=== PATIENT | female | born 1995 | race Caucasian/White ===

== ENCOUNTER 2018-11-03 20:35 | Emergency (ER) | payer OTHER ==
--- NOTE | 2018-11-03 20:49 | ERPHSYRPT ---
- History of Present Illness Time Seen by Provider: 11/03/18 20:49 Source: patient Exam Limitations: no limitations Physician History: 23 y/o white female who is 8-9 weeks . she has not had an u/s with this . pt has had n/v for over 48 hours. cannot hold fluids down. she began have mild vaginal spotting this afternoon. pt has had 2 miscarriages. most recently 5 months ago. pt also has a mild headache. Timing/Duration: day(s) (2 ) Quality: cramping (mild vaginal) Onset Location: suprapubic, vaginal Pain Radiation: none Severity of Pain-Max: mild Severity of Pain-Current: mild Sexual intercourse history: non-contributory Modifying Factors: Improves With: vomiting Associated Symptoms: abdominal pain, nausea, vomiting, Allergies/Adverse Reactions: No Known Drug Allergies Allergy (Unverified 11/03/18 21:44) - Review of Systems Constitutional: No Symptoms Eyes: No Symptoms Ears, Nose, & Throat: No Symptoms Respiratory: No Symptoms Cardiac: No Symptoms Abdominal/Gastrointestinal: Abdominal Pain, Nausea, Vomiting Genitourinary Symptoms: No Symptoms, Vaginal Bleeding (mild spotting today), No Dysuria, No Frequency, No Hematuria Musculoskeletal: No Symptoms Skin: No Symptoms Neurological: No Symptoms Psychological: No Symptoms Endocrine: No Symptoms Hematologic/Lymphatic: No Symptoms Immunological/Allergic: No Symptoms All Other Systems: Reviewed and Negative - Past Medical History Pertinent Past Medical History: Yes Neurological History: No Pertinent History ENT History: No Pertinent History Cardiac History: No Pertinent History Respiratory History: No Pertinent History Endocrine Medical History: No Pertinent History Musculoskeletal History: No Pertinent History GI Medical History: No Pertinent History History: No Pertinent History Psycho-Social History: No Pertinent History Female Reproductive Disorders: No Pertinent History - Past Surgical History Neuro Surgical History: No Pertinent History Cardiac: No Pertinent History Respiratory: No Pertinent History Gastrointestinal: No Pertinent History Genitourinary: No Pertinent History Musculoskeletal: No Pertinent History Female Surgical History: No Pertinent History - Nursing Vital Signs Nursing Vital Signs: Initial Vital Signs Temperature 98.2 F 11/03/18 21:28 Pulse Rate 93 H 11/03/18 21:28 Respiratory Rate 18 11/03/18 21:28 Blood Pressure 124/76 11/03/18 21:28 O2 Sat by Pulse Oximetry 100 11/03/18 21:28 Pain Scale Pain Intensity 0 - Physical Exam General Appearance: no apparent distress, alert, anxiety Eye Exam: PERRL/EOMI Ears, Nose, Throat Exam: normal ENT inspection, moist mucous membranes Neck Exam: normal inspection, non-tender, supple, full range of motion Respiratory Exam: normal breath sounds, lungs clear, airway intact, No chest tenderness, No respiratory distress Cardiovascular Exam: regular rate/rhythm, normal heart sounds, normal peripheral pulses Gastrointestinal/Abdomen Exam: soft, tenderness (mild suprapubic ), No guarding , No rebound Pelvic Exam: not done Rectal Exam: not done Back Exam: normal inspection, normal range of motion, No CVA tenderness, No vertebral tenderness Extremity Exam: normal inspection, normal range of motion, pelvis stable Neurologic Exam: alert, oriented x 3, cooperative, meal attendant II-XII nml as tested Skin Exam: normal color, warm, dry Lymphatic Exam: No adenopathy SpO2 Interpretation: normal O2 Delivery: Room Air Ordered Tests: Active Orders 24 hr Category Date Time Status AMYLASE Stat Lab 11/03/18 21:40 Completed CBC W DIFF Stat Lab 11/03/18 21:40 Completed CMP Stat Lab 11/03/18 21:40 Completed CULTURE,URINE Stat Lab 11/03/18 21:44 Received HCG, Quantitative (Inhouse) Stat Lab 11/03/18 21:40 Completed LIPASE Stat Lab 11/03/18 21:40 Completed UA W/RFX UR CULTURE Stat Lab 11/03/18 21:44 Completed Medication Summary Discontinued Medications Generic Name Dose Route Start Last Admin Trade Name Darianq PRN Reason Stop Dose Admin Sodium Chloride 1,000 mls @ 999 mls/hr 11/03/18 21:11 11/03/18 22:56 Sodium Chloride 0.9% 1000 Ml IV 11/03/18 22:11 Infused .Q1H1M STA Infusion Sodium Chloride Confirm 11/03/18 21:22 Sodium Chloride 0.9% 1000 Ml Administered 11/03/18 21:23 Dose 1,000 mls @ ud .ROUTE .STK-MED ONE Ondansetron HCl 4 mg 11/03/18 21:11 11/03/18 21:44 Zofran 4 Mg/2 Ml Vial IV 11/03/18 21:12 Not Given STAT ONE Ondansetron HCl Confirm 11/03/18 21:23 Zofran 4 Mg/2 Ml Vial Administered 11/03/18 21:24 Dose 4 mg .ROUTE .STK-MED ONE Promethazine HCl 12.5 mg 11/03/18 21:30 11/03/18 21:45 Phenergan 25 Mg Inj IM 11/03/18 21:31 12.5 mg STAT ONE Administration Promethazine HCl Confirm 11/03/18 21:32 Phenergan 25 Mg Inj Administered 11/03/18 21:33 Dose 25 mg .ROUTE .STK-MED ONE Lab/Rad Data: Laboratory Result Diagrams 11/03/18 21:40 11/03/18 21:40 Laboratory Results 11/03/18 11/03/18 11/03/18 Range/Units 21:44 21:40 21:40 WBC (4.0-10.5) K/mm3 RBC (4.1-5.4) M/mm3 Hgb (12.0-16.0) gm/dl Hct (35-47) % MCV (78-100) fl MCH (26-32) pg MCHC (32-36) g/dl RDW (11.5-14.0) % Plt Count (150-450) K/mm3 MPV (6-9.5) fl Gran % (36.0-66.0) % Eos # (Auto) (0-0.5) Absolute Lymphs (auto) (1.0-4.6) Absolute Monos (auto) (0.0-1.3) Lymphocytes % (24.0-44.0) % Monocytes % (0.0-12.0) % Eosinophils % (0.00-5.0) % Basophils % (0.0-0.4) % Absolute Granulocytes (1.4-6.9) Basophils # (0-0.4) Sodium (137-145) mmol/L Potassium (3.5-5.1) mmol/L Chloride (98-107) mmol/L Carbon Dioxide (22-30) mmol/L Anion Gap (5-15) MEQ/L BUN (7-17) mg/dL Creatinine (0.52-1.04) mg/dL Estimated GFR ML/MIN Glucose (74-106) mg/dL Calcium (8.4-10.2) mg/dL Total Bilirubin (0.2-1.3) mg/dL AST (14-36) U/L ALT (0-35) U/L Alkaline Phosphatase (38-126) U/L Serum Total Protein (6.3-8.2) g/dL Albumin (3.5-5.0) g/dL Amylase 50 (30-110) U/L Lipase 101 (23-300) U/L Beta HCG, Quant 480985 mIU/ml Urine Color YELLOW (YELLOW) Urine Appearance SLIGHTLY CLOUDY (CLEAR) Urine pH 6.0 (5-6) Ur Specific [place] 1.016 (1.005-1.025) Urine Protein NEGATIVE (Negative) Urine Ketones NEGATIVE (NEGATIVE) Urine Blood NEGATIVE (0-5) Wily/ul Urine Nitrite NEGATIVE (NEGATIVE) Urine Bilirubin NEGATIVE (NEGATIVE) Urine Urobilinogen 2 (0-1) mg/dL Ur Leukocyte Esterase SMALL (NEGATIVE) Urine WBC (Auto) 6-10 (0-5) /HPF Urine RBC (Auto) 3-5 (0-2) /HPF U Epithel Cells (Auto) FEW (FEW) /HPF Urine Bacteria (Auto) FEW (NEGATIVE) /HPF Unidentified Crystals 2-5 (NEGATIVE) /HPF Urine Mucus (Auto) SLIGHT (NEGATIVE) /HPF Urine Culture Reflexed YES (NO) Urine Glucose NEGATIVE (NEGATIVE) mg/dL 11/03/18 11/03/18 Range/Units 21:40 21:40 WBC 9.1 (4.0-10.5) K/mm3 RBC 4.58 (4.1-5.4) M/mm3 Hgb 11.4 L (12.0-16.0) gm/dl Hct 36.1 (35-47) % MCV 78.8 (78-100) fl MCH 24.8 L (26-32) pg MCHC 31.6 L (32-36) g/dl RDW 15.4 H (11.5-14.0) % Plt Count 249 (150-450) K/mm3 MPV 9.9 H (6-9.5) fl Gran % 62.0 (36.0-66.0) % Eos # (Auto) 0.25 (0-0.5) Absolute Lymphs (auto) 2.41 (1.0-4.6) Absolute Monos (auto) 0.77 (0.0-1.3) Lymphocytes % 26.5 (24.0-44.0) % Monocytes % 8.5 (0.0-12.0) % Eosinophils % 2.8 (0.00-5.0) % Basophils % 0.2 (0.0-0.4) % Absolute Granulocytes 5.64 (1.4-6.9) Basophils # 0.02 (0-0.4) Sodium 139 (137-145) mmol/L Potassium 3.8 (3.5-5.1) mmol/L Chloride 105 (98-107) mmol/L Carbon Dioxide 23 (22-30) mmol/L Anion Gap 14.9 (5-15) MEQ/L BUN 7 (7-17) mg/dL Creatinine 0.54 (0.52-1.04) mg/dL Estimated GFR > 60.0 ML/MIN Glucose 89 (74-106) mg/dL Calcium 9.8 (8.4-10.2) mg/dL Total Bilirubin 0.30 (0.2-1.3) mg/dL AST 18 (14-36) U/L ALT 16 (0-35) U/L Alkaline Phosphatase 68 (38-126) U/L Serum Total Protein 8.4 H (6.3-8.2) g/dL Albumin 4.8 (3.5-5.0) g/dL Amylase (30-110) U/L Lipase (23-300) U/L Beta HCG, Quant mIU/ml Urine Color (YELLOW) Urine Appearance (CLEAR) Urine pH (5-6) Ur Specific [place] (1.005-1.025) Urine Protein (Negative) Urine Ketones (NEGATIVE) Urine Blood (0-5) Wily/ul Urine Nitrite (NEGATIVE) Urine Bilirubin (NEGATIVE) Urine Urobilinogen (0-1) mg/dL Ur Leukocyte Esterase (NEGATIVE) Urine WBC (Auto) (0-5) /HPF Urine RBC (Auto) (0-2) /HPF U Epithel Cells (Auto) (FEW) /HPF Urine Bacteria (Auto) (NEGATIVE) /HPF Unidentified Crystals (NEGATIVE) /HPF Urine Mucus (Auto) (NEGATIVE) /HPF Urine Culture Reflexed (NO) Urine Glucose (NEGATIVE) mg/dL - Progress Progress: improved, re-examined Air Movement: good Progress Note: 11/03/18 22:58 pt states she is feeling better. Antibiotics given: No Counseled pt/family regarding: lab results, diagnosis, need for follow-up - Departure Time of Disposition: 23:00 Departure Disposition: Home Clinical Impression: UTI in , Vomiting as reason for care in , Vaginal spotting Condition: Stable Critical Care Time: No Referrals: ZAIN CURRY [Primary Care Provider] - Additional Instructions: follow up tomorrow, 11/04/18, for first trimester vaginal ultrasound. drink plenty of fluids. take medications as prescribed. Prescriptions: Cephalexin Mh 500 mg [Keflex 500 mg] 500 mg PO TID #21 capsule
[2018-11-03] MEDS ORDERED: Zofran 4 MG/2 ML VIAL IV ONE (21:11)
[2018-11-03] MEDS ORDERED: Sodium Chloride 0.9% 1000 ML 1,000 ML IV STA (21:11)
[2018-11-03] MEDS ORDERED: Sodium Chloride 0.9% 1000 ML 1,000 ML ONE (21:22)
[2018-11-03] MEDS ORDERED: Zofran 4 MG/2 ML VIAL ONE (21:23)
[2018-11-03] MEDS ORDERED: Phenergan 25 MG INJ IM ONE (21:30)
[2018-11-03] MEDS ORDERED: Phenergan 25 MG INJ ONE (21:32)
[2018-11-03 21:50] LABS: BASOPHIL % 0.2 % (0.0-0.4); Basophil (Absolute #) 0.02 (0-0.4); Eosinophil % 2.8 % (0.00-5.0); Eosinophil (Absolute #) 0.25 (0-0.5); Granulocyte Absolute (ANC) 5.64 (1.4-6.9); Hematocrit 36.1 % (35-47); Hemoglobin 11.4 gm/dl (12.0-16.0); Lymphocyte (Absolute #) 2.41 (1.0-4.6); Lymphocytes % 26.5 % (24.0-44.0); Mean Cell Volume 78.8 fl (78-100); Mean Corpuscular Hgb Concent. 31.6 g/dl (32-36); Mean Platelet Volume 9.9 fl (6-9.5); Monocyte (Absolute #) 0.77 (0.0-1.3); Monocytes % 8.5 % (0.0-12.0); Platelet Count 249 K/mm3 (150-450); Red Blood Count 4.58 M/mm3 (4.1-5.4); Red Cell Distribution Width 15.4 % (11.5-14.0); White Blood Count 9.1 K/mm3 (4.0-10.5)
[2018-11-03 21:53] LABS: Mean Corpuscular Hemoglobin 24.8 pg (26-32)
[2018-11-03 21:56] VITALS: PULSE 90; O2SAT 99
[2018-11-03 22:14] LABS: ALBUMIN 4.8 g/dL (3.5-5.0); ALKALINE PHOSPHATASE 68 U/L (38-126); ANION GAP 14.9 MEQ/L (5-15); BLOOD UREA NITROGEN 7 mg/dL (7-17); CHLORIDE 105 mmol/L (98-107); Calcium 9.8 mg/dL (8.4-10.2); Carbon Dioxide 23 mmol/L (22-30); Creatinine 1 0.54 mg/dL (0.52-1.04); Glucose 89 mg/dL (74-106); Potassium 3.8 mmol/L (3.5-5.1); SGOT/AST 18 U/L (14-36); SGPT/ALT 16 U/L (0-35); SODIUM 139 mmol/L (137-145); Total Protein 8.4 g/dL (6.3-8.2)
[2018-11-03 22:15] LABS: AMYLASE 50 U/L (30-110); LIPASE 101 U/L (23-300)
[2018-11-03 22:34] LABS: Appearance SLIGHTLY CLOUDY (CLEAR); Bacteria FEW /HPF (NEGATIVE); Bilirubin NEGATIVE (NEGATIVE); Blood NEGATIVE Ery/ul (0-5); Epithelial Cells FEW /HPF (FEW); Glucose NEGATIVE (NEGATIVE); Ketones NEGATIVE (NEGATIVE); Leukocyte Esterase SMALL (NEGATIVE); Mucus SLIGHT /HPF (NEGATIVE); Nitrite NEGATIVE (NEGATIVE); Protein,Urine Dip NEGATIVE (Negative); Specific Gravity 1.016 (1.005-1.025); Urobilinogen 2 mg/dL (0-1)
[2018-11-03 23:00] VITALS: BP 116/65
[2018-11-03] MEDS ORDERED: KEFLEX 500 MG PO ONE (23:03)
[2018-11-03] MEDS ORDERED: KEFLEX 500 MG ONE (23:07)
== END 2018-11-03 23:20 | disposition home or self-care (01) ==
LOC: ED 20:35
DX: O23.41 Unspecified infection of urinary tract in pregnancy, first trimester (principal); O26.851 Spotting complicating pregnancy, first trimester; Z3A.09 9 weeks gestation of pregnancy; R51 Headache; R10.9 Unspecified abdominal pain; R11.2 Nausea with vomiting, unspecified
CPT/HCPCS: 36000; 36415; 80053; 81001; 82150; 83690; 84702; 85025; 87086; 96360; 96372; 99284; J2405; J2550; A9270-GY

== ENCOUNTER 2018-11-14 14:21 | Emergency (ER) | payer OTHER ==
--- NOTE | 2018-11-14 14:30 | ERPHSYRPT ---
- History of Present Illness Time Seen by Provider: 11/14/18 14:29 Historian: patient Exam Limitations: no limitations Physician History: 23 y/o white female who is 10 weeks with a single live intrauterine fetus documented by ultrasound and h/o uti, presents with vomiting for a few days despite zofran orally. denies cp, denies abd pain, denies vaginal bleeding. pt states she still has 2 to 3 days of antibiotics remaining. she states she did not take her meds as prescribed. Timing/Duration: day(s) (a couple of days) Abdominal Pain Onset Location: other (none) Pain Radiation: no radiation Severity of Pain-Max: none Severity of Pain-Current: none Modifying Factors: Improves With: vomiting Associated Symptoms: nausea, vomiting, No chest pain, No diaphoresis, No diarrhea, No fever/chills, No shortness of breath Previous symptoms: same symptoms as today Allergies/Adverse Reactions: No Known Drug Allergies Allergy (Verified 11/14/18 14:34) Home Medications: Vit37/Iron/Folic Acid [[place] Chewable Tablet] 1 each PO DAILY [History] Hx Influenza Vaccination/Date Given: No Hx Pneumococcal Vaccination/Date Given: No - Review of Systems Constitutional: No Symptoms Eyes: No Symptoms Ears, Nose, & Throat: No Symptoms Respiratory: No Symptoms Cardiac: No Symptoms Abdominal/Gastrointestinal: Nausea, Vomiting, No Abdominal Pain, No Diarrhea Genitourinary Symptoms: , No Dysuria, No Frequency, No Hematuria Musculoskeletal: No Symptoms Skin: No Symptoms Neurological: No Symptoms Psychological: No Symptoms Endocrine: No Symptoms Hematologic/Lymphatic: No Symptoms Immunological/Allergic: No Symptoms All Other Systems: Reviewed and Negative - Past Medical History Pertinent Past Medical History: Yes Neurological History: No Pertinent History ENT History: No Pertinent History Cardiac History: No Pertinent History Respiratory History: No Pertinent History Endocrine Medical History: No Pertinent History Musculoskeletal History: No Pertinent History GI Medical History: No Pertinent History History: No Pertinent History Psycho-Social History: No Pertinent History Female Reproductive Disorders: No Pertinent History Other Medical History: Alda's - Past Surgical History Past Surgical History: No Neuro Surgical History: No Pertinent History Cardiac: No Pertinent History Respiratory: No Pertinent History Gastrointestinal: No Pertinent History Genitourinary: No Pertinent History Musculoskeletal: No Pertinent History Female Surgical History: No Pertinent History - Social History Smoking Status: Current every day smoker How long have you smoked: 8 years Exposure to second hand smoke: Yes Drug Use: none Patient Lives Alone: No - Nursing Vital Signs Nursing Vital Signs: Initial Vital Signs Temperature 98.3 F 11/14/18 14:27 Pulse Rate 120 H 11/14/18 14:27 Respiratory Rate 18 11/14/18 14:27 Blood Pressure 147/76 11/14/18 14:27 O2 Sat by Pulse Oximetry 100 11/14/18 14:27 Pain Scale Pain Intensity 0 - Physical Exam General Appearance: no apparent distress, alert Eye Exam: PERRL/EOMI Ears, Nose, Throat Exam: normal ENT inspection, moist mucous membranes Neck Exam: normal inspection, non-tender, supple, full range of motion Respiratory Exam: normal breath sounds, lungs clear, airway intact, No chest tenderness, No respiratory distress Cardiovascular Exam: normal heart sounds, normal peripheral pulses, tachycardia Gastrointestinal/Abdomen Exam: soft, normal bowel sounds, No tenderness, No guarding, No rebound Pelvic Exam: not done Rectal Exam: not done Back Exam: normal inspection, normal range of motion, No CVA tenderness, No vertebral tenderness Extremity Exam: normal inspection, normal range of motion, pelvis stable Neurologic Exam: alert, oriented x 3, cooperative, telecommunications operator II-XII nml as tested Skin Exam: normal color, warm, dry Lymphatic Exam: No adenopathy SpO2 Interpretation: normal O2 Delivery: Room Air - Course Nursing assessment & vital signs reviewed: Yes Ordered Tests: Active Orders 24 hr Category Date Time Status Clean Catch Urine Specimen STAT Care 11/14/18 14:41 Active IV Insertion STAT Care 11/14/18 14:41 Active AMYLASE Stat Lab 11/14/18 15:00 Completed CBC W DIFF Stat Lab 11/14/18 15:00 Completed CMP Stat Lab 11/14/18 15:00 Completed CULTURE,URINE Stat Lab 11/14/18 Received LIPASE Stat Lab 11/14/18 15:00 Completed UA W/RFX UR CULTURE Stat Lab 11/14/18 Completed Medication Summary Generic Name Dose Route Start Last Admin Trade Name Freq PRN Reason Stop Dose Admin Ceftriaxone Sodium/Dextrose 1 g in 50 mls @ 100 mls/hr 11/14/18 16:09 Rocephin 1 Gm-D5w 50 Ml Bag IV 11/14/18 16:38 STAT STA Discontinued Medications Generic Name Dose Route Start Last Admin Trade Name Freq PRN Reason Stop Dose Admin Sodium Chloride 1,000 mls @ 999 mls/hr 11/14/18 14:41 11/14/18 16:00 Sodium Chloride 0.9% 1000 Ml IV 11/14/18 15:41 Infused .Q1H1M STA Infusion Sodium Chloride Confirm 11/14/18 14:54 Sodium Chloride 0.9% 1000 Ml Administered 11/14/18 14:55 Dose 1,000 mls @ ud .ROUTE .STK-MED ONE Ondansetron HCl 4 mg 11/14/18 14:41 11/14/18 14:59 Zofran 4 Mg/2 Ml Vial IV 11/14/18 14:42 4 mg STAT ONE Administration Ondansetron HCl Confirm 11/14/18 14:54 Zofran 4 Mg/2 Ml Vial Administered 11/14/18 14:55 Dose 4 mg .ROUTE .STK-MED ONE Promethazine HCl 12.5 mg 11/14/18 14:41 11/14/18 14:59 Phenergan 25 Mg Inj IM 11/14/18 14:42 12.5 mg STAT ONE Administration Promethazine HCl Confirm 11/14/18 14:54 Phenergan 25 Mg Inj Administered 11/14/18 14:55 Dose 25 mg .ROUTE .STK-MED ONE Lab/Rad Data: Laboratory Result Diagrams 11/14/18 15:00 11/14/18 15:00 Laboratory Results 11/14/18 11/14/18 11/14/18 Range/Units Unknown 15:00 15:00 WBC 9.8 (4.0-10.5) K/mm3 RBC 4.58 (4.1-5.4) M/mm3 Hgb 11.5 L (12.0-16.0) gm/dl Hct 36.1 (35-47) % MCV 78.8 (78-100) fl MCH 25.1 L (26-32) pg MCHC 31.9 L (32-36) g/dl RDW 15.7 H (11.5-14.0) % Plt Count 211 (150-450) K/mm3 MPV 11.1 H (6-9.5) fl Gran % 83.5 H (36.0-66.0) % Eos # (Auto) 0.03 (0-0.5) Absolute Lymphs (auto) 1.19 (1.0-4.6) Absolute Monos (auto) 0.39 (0.0-1.3) Lymphocytes % 12.1 L (24.0-44.0) % Monocytes % 4.0 (0.0-12.0) % Eosinophils % 0.3 (0.00-5.0) % Basophils % 0.1 (0.0-0.4) % Absolute Granulocytes 8.21 H (1.4-6.9) Basophils # 0.01 (0-0.4) Sodium 138 (137-145) mmol/L Potassium 3.9 (3.5-5.1) mmol/L Chloride 106 (98-107) mmol/L Carbon Dioxide 21 L (22-30) mmol/L Anion Gap 14.3 (5-15) MEQ/L BUN 7 (7-17) mg/dL Creatinine 0.44 L (0.52-1.04) mg/dL Estimated GFR > 60.0 ML/MIN Glucose 84 (74-106) mg/dL Calcium 9.3 (8.4-10.2) mg/dL Total Bilirubin 0.40 (0.2-1.3) mg/dL AST 19 (14-36) U/L ALT 14 (0-35) U/L Alkaline Phosphatase 60 (38-126) U/L Serum Total Protein 7.7 (6.3-8.2) g/dL Albumin 4.3 (3.5-5.0) g/dL Amylase 67 (30-110) U/L Lipase 41 (23-300) U/L Urine Color ECHO (YELLOW) Urine Appearance CLOUDY (CLEAR) Urine pH 6.0 (5-6) Ur Specific [place] 1.025 (1.005-1.025) Urine Protein 30 (Negative) Urine Ketones NEGATIVE (NEGATIVE) Urine Blood NEGATIVE (0-5) Wily/ul Urine Nitrite NEGATIVE (NEGATIVE) Urine Bilirubin NEGATIVE (NEGATIVE) Urine Urobilinogen 2 (0-1) mg/dL Ur Leukocyte Esterase LARGE (NEGATIVE) Urine WBC (Auto) 16-25 (0-5) /HPF Urine RBC (Auto) 0-2 (0-2) /HPF U Epithel Cells (Auto) RARE (FEW) /HPF Urine Bacteria (Auto) RARE (NEGATIVE) /HPF Urine Mucus (Auto) MODERATE (NEGATIVE) /HPF Urine Culture Reflexed YES (NO) Urine Glucose NEGATIVE (NEGATIVE) mg/dL - Progress Progress: improved, re-examined Counseled pt/family regarding: lab results, diagnosis, need for follow-up - Departure Time of Disposition: 16:12 Departure Disposition: Home Clinical Impression: UTI (urinary tract infection) during , Vomiting Condition: Stable Critical Care Time: No Referrals: ZAIN CURYR [Primary Care Provider] - Additional Instructions: drink plenty of fluids. continue antibiotics as prescribed. follow up with [facility] tomorrow for further management of nausea, vomiting and uti.
[2018-11-14] MEDS ORDERED: Phenergan 25 MG INJ IM ONE (14:41)
[2018-11-14] MEDS ORDERED: Zofran 4 MG/2 ML VIAL IV ONE (14:41)
[2018-11-14] MEDS ORDERED: Sodium Chloride 0.9% 1000 ML 1,000 ML IV STA (14:41)
[2018-11-14] MEDS ORDERED: Sodium Chloride 0.9% 1000 ML 1,000 ML ONE (14:54)
[2018-11-14] MEDS ORDERED: Phenergan 25 MG INJ ONE (14:54)
[2018-11-14] MEDS ORDERED: Zofran 4 MG/2 ML VIAL ONE (14:54)
[2018-11-14 15:37] LABS: ALBUMIN 4.3 g/dL (3.5-5.0); ALKALINE PHOSPHATASE 60 U/L (38-126); AMYLASE 67 U/L (30-110); ANION GAP 14.3 MEQ/L (5-15); BLOOD UREA NITROGEN 7 mg/dL (7-17); CHLORIDE 106 mmol/L (98-107); Calcium 9.3 mg/dL (8.4-10.2); Carbon Dioxide 21 mmol/L (22-30); Creatinine 1 0.44 mg/dL (0.52-1.04); Glucose 84 mg/dL (74-106); LIPASE 41 U/L (23-300); Potassium 3.9 mmol/L (3.5-5.1); SGOT/AST 19 U/L (14-36); SGPT/ALT 14 U/L (0-35); SODIUM 138 mmol/L (137-145); Total Protein 7.7 g/dL (6.3-8.2)
[2018-11-14 15:38] LABS: BASOPHIL % 0.1 % (0.0-0.4); Basophil (Absolute #) 0.01 (0-0.4); Eosinophil % 0.3 % (0.00-5.0); Eosinophil (Absolute #) 0.03 (0-0.5); Granulocyte Absolute (ANC) 8.21 (1.4-6.9); Granulocytes % 83.5 % (36.0-66.0); Hematocrit 36.1 % (35-47); Hemoglobin 11.5 gm/dl (12.0-16.0); Lymphocyte (Absolute #) 1.19 (1.0-4.6); Lymphocytes % 12.1 % (24.0-44.0); Mean Cell Volume 78.8 fl (78-100); Mean Corpuscular Hemoglobin 25.1 pg (26-32); Mean Corpuscular Hgb Concent. 31.9 g/dl (32-36); Mean Platelet Volume 11.1 fl (6-9.5); Monocyte (Absolute #) 0.39 (0.0-1.3); Platelet Count 211 K/mm3 (150-450); Red Blood Count 4.58 M/mm3 (4.1-5.4); Red Cell Distribution Width 15.7 % (11.5-14.0); White Blood Count 9.8 K/mm3 (4.0-10.5)
[2018-11-14 15:49] LABS: Appearance CLOUDY (CLEAR); Bacteria RARE /HPF (NEGATIVE); Bilirubin NEGATIVE (NEGATIVE); Blood NEGATIVE Ery/ul (0-5); Epithelial Cells RARE /HPF (FEW); Glucose NEGATIVE (NEGATIVE); Ketones NEGATIVE (NEGATIVE); Leukocyte Esterase LARGE (NEGATIVE); Mucus MODERATE /HPF (NEGATIVE); Nitrite NEGATIVE (NEGATIVE); Protein,Urine Dip 30 (Negative); RBC 0-2 /HPF (0-2); Specific Gravity 1.025 (1.005-1.025); Urobilinogen 2 mg/dL (0-1)
[2018-11-14] MEDS ORDERED: ROCEPHIN 1 Gm-D5w 50 ml Bag** 1 G/50 ML IVPB IV STA (16:09)
[2018-11-14] MEDS ORDERED: ROCEPHIN 1 Gm-D5w 50 ml Bag** 1 G/50 ML IVPB IV ONE (16:15)
[2018-11-14 16:33] VITALS: BP 121/71; PULSE 68; O2SAT 98
== END 2018-11-14 16:34 | disposition home or self-care (01) ==
LOC: ED 14:21
DX: O23.41 Unspecified infection of urinary tract in pregnancy, first trimester (principal); O21.0 Mild hyperemesis gravidarum; Z3A.10 10 weeks gestation of pregnancy
CPT/HCPCS: 36415; 80053; 81001; 82150; 83690; 85025; 87086; 96360; 96365; 96372; 96374; 96375; 99284; J0696; J2405; J2550

== ENCOUNTER 2019-05-17 16:47 | Observation (INO) | payer MEDICAID, OTHER ==
[2019-05-17] MEDS ORDERED: Sodium Chloride 0.9% 1000 ML 1,000 ML IV SCH (17:15)
[2019-05-17] MEDS ORDERED: Lactated Ringers 500 ML IV ONE (17:54)
[2019-05-17 20:01] LABS: ABO TYPING A; Antibody Screen NEGATIVE (NEGATIVE); RH TYPING NEGATIVE
[2019-05-17 20:03] LABS: CROSS MATCH (PRBC) COMPATIBLE (COMPATIBLE)
[2019-05-17 22:07] LABS: Hematocrit 27.8 % (35-47); Hemoglobin 8.4 gm/dl (12.0-16.0)
[2019-05-17 23:46] VITALS: O2SAT 100
[2019-05-18 05:05] LABS: Hematocrit 27.4 % (35-47); Hemoglobin 8.3 gm/dl (12.0-16.0)
[2019-05-18 11:37] VITALS: BP 120/71; PULSE 100
== END 2019-05-18 09:05 | disposition home health service (06) ==
LOC: OB 16:47
PROVIDERS: ADMIT Family Medicine; ATTEND Family Medicine
DX: Z34.83 Encounter for supervision of other normal pregnancy, third trimester (principal)
CPT/HCPCS: 36415; 36430; 85014; 85018; 86850; 86900; 86901; 86922; G0378; P9016

== ENCOUNTER 2019-06-01 12:55 | Inpatient (IN) | payer OTHER ==
[2019-06-01] MEDS ORDERED: Lactated Ringers 1,000 ML IV SCH (19:30)
[2019-06-01] MEDS ORDERED: PITOCIN 30 UNITS/ LR 500 ML 500 ML IV SCH (19:30)
[2019-06-01] MEDS ORDERED: Cervidil 10 MG VAG SCH (20:00)
[2019-06-01] MEDS ORDERED: BRETHINE 1 MG/ML SQ PRN (21:00)
[2019-06-01] MEDS ORDERED: PITOCIN 30 UNITS/ LR 500 ML 30 UNITS/500 ML IV.SOLN. IV SCH (21:00)
[2019-06-01] MEDS ORDERED: XYLOCAINE 1% HCL 20 ML MDV IJ PRN (21:00)
[2019-06-01 21:11] LABS: BASOPHIL % 0.1 % (0.0-0.4); Basophil (Absolute #) 0.01 (0-0.4); Eosinophil % 1.5 % (0.00-5.0); Eosinophil (Absolute #) 0.16 (0-0.5); Granulocyte Absolute (ANC) 7.32 (1.4-6.9); Granulocytes % 67.3 % (36.0-66.0); Hematocrit 29.2 % (35-47); Lymphocytes % 21.1 % (24.0-44.0); Mean Cell Volume 83.4 fl (78-100); Mean Corpuscular Hemoglobin 25.7 pg (26-32); Mean Corpuscular Hgb Concent. 30.8 g/dl (32-36); Mean Platelet Volume 11.9 fl (6-9.5); Monocyte (Absolute #) 1.09 (0.0-1.3); Platelet Count 210 K/mm3 (150-450); Red Cell Distribution Width 18.9 % (11.5-14.0); White Blood Count 10.9 K/mm3 (4.0-10.5)
[2019-06-01 21:16] LABS: Appearance CLOUDY (CLEAR); Bacteria RARE /HPF (NEGATIVE); Bilirubin NEGATIVE (NEGATIVE); Blood NEGATIVE Ery/ul (0-5); Epithelial Cells MODERATE /HPF (FEW); Glucose NEGATIVE (NEGATIVE); Ketones NEGATIVE (NEGATIVE); Leukocyte Esterase LARGE (NEGATIVE); Mucus MANY /HPF (NEGATIVE); Nitrite NEGATIVE (NEGATIVE); Protein,Urine Dip 30 (Negative); Specific Gravity 1.024 (1.005-1.025); Urobilinogen 2 mg/dL (0-1); WBC 51-100 /HPF (0-5)
[2019-06-01 21:29] LABS: Amphetamine,Urine NEGATIVE (NEGATIVE); Barbiturate,Urine NEGATIVE (NEGATIVE); Benzodiazepine,Urine NEGATIVE (NEGATIVE); Cocaine,Urine NEGATIVE (NEGATIVE); Methadone,Urine NEGATIVE (NEGATIVE); Opiate,Urine NEGATIVE (NEGATIVE); PCP,Urine NEGATIVE (NEGATIVE); THC,Urine NEGATIVE (NEGATIVE)
[2019-06-01] MEDS: Lactated Ringers 1,000 ML IV SCH (21:46)
[2019-06-01] MEDS ORDERED: ROCEPHIN 1 Gm-D5w 50 ml Bag** 1 G/50 ML IVPB IV SCH (22:00)
[2019-06-02 00:13] VITALS: O2SAT 98
[2019-06-02] MEDS ORDERED: PITOCIN 30 UNITS/ LR 500 ML 500 ML IV SCH (08:00)
[2019-06-02] MEDS ORDERED: Lactated Ringers 1,000 ML IV ONE (09:34)
[2019-06-02] MEDS ORDERED: OB EPIDURAL NAROPIN/SUFENTANIL IN NACL EPIDURAL PRN (09:34)
[2019-06-02] MEDS ORDERED: XYLOCAINE 2%/Epi 1:200000 20ML VIAL MPF ONE (09:50)
[2019-06-02] MEDS: Zofran 4 MG/2 ML VIAL IV PRN ×2 (10:06→20:18)
[2019-06-02] MEDS ORDERED: XYLOCAINE 2%/Epi 1:200000 20ML VIAL MPF IJ ONE (11:00)
[2019-06-02] MEDS: Lactated Ringers 1,000 ML IV SCH ×2 (11:34→14:41)
[2019-06-02] MEDS ORDERED: Compazine 10 MG/2 ML IV ONE (13:02)
[2019-06-02] MEDS ORDERED: TUCKS TP PRN (18:56)
[2019-06-02] MEDS ORDERED: NORCO 5/325 MG PO PRN (18:56)
[2019-06-02] MEDS ORDERED: Mylicon 80MG PO PRN (18:56)
[2019-06-02] MEDS ORDERED: Adacel Vial IM ONE (18:56)
[2019-06-02] MEDS ORDERED: TYLENOL EXTRA STRENGTH 500 MG PO PRN (18:56)
[2019-06-02] MEDS ORDERED: Dermoplast Spray TP PRN (18:56)
[2019-06-02] MEDS ORDERED: Rhogam Plus 300 MCG IM ONE (19:59)
[2019-06-02] MEDS: TYLENOL EXTRA STRENGTH 500 MG PO PRN (20:18)
[2019-06-02 20:28] LABS: ABO TYPING A; ANTIBODY SCREEN NEGATIVE (NEGATIVE); RH TYPING NEGATIVE
[2019-06-02] MEDS: Colace 100 MG PO SCH (21:58)
[2019-06-02] MEDS ORDERED: ROCEPHIN 1 Gm-D5w 50 ml Bag** 1 G/50 ML IVPB IV SCH (22:00)
[2019-06-03] MEDS: MOTRIN 400 MG PO PRN ×2 (04:19→17:39)
[2019-06-03 06:05] LABS: BASOPHIL % 0.1 % (0.0-0.4); Basophil (Absolute #) 0.02 (0-0.4); Eosinophil % 1.4 % (0.00-5.0); Granulocyte Absolute (ANC) 9.82 (1.4-6.9); Granulocytes % 70.7 % (36.0-66.0); Hematocrit 28.1 % (35-47); Hemoglobin 8.6 gm/dl (12.0-16.0); Lymphocyte (Absolute #) 2.65 (1.0-4.6); Mean Cell Volume 83.6 fl (78-100); Mean Corpuscular Hgb Concent. 30.6 g/dl (32-36); Mean Platelet Volume 11.3 fl (6-9.5); Monocyte (Absolute #) 1.23 (0.0-1.3); Monocytes % 8.8 % (0.0-12.0); Platelet Count 181 K/mm3 (150-450); Red Blood Count 3.36 M/mm3 (4.1-5.4); Red Cell Distribution Width 18.7 % (11.5-14.0); White Blood Count 13.9 K/mm3 (4.0-10.5)
[2019-06-03 06:26] LABS: Mean Corpuscular Hemoglobin 25.5 pg (26-32)
[2019-06-03] MEDS: TYLENOL EXTRA STRENGTH 500 MG PO PRN ×2 (07:42→11:59)
[2019-06-03] MEDS: Colace 100 MG PO SCH ×2 (09:53→22:05)
[2019-06-03] MEDS: FERREX 150 PO SCH (09:53)
[2019-06-03] MEDS: Augmentin 875-125 Tablet PO SCH (16:41)
[2019-06-04] MEDS: TYLENOL EXTRA STRENGTH 500 MG PO PRN ×2 (05:40→13:23)
[2019-06-04] MEDS: Colace 100 MG PO SCH (09:21)
[2019-06-04] MEDS: MOTRIN 400 MG PO PRN (09:21)
[2019-06-04] MEDS: Augmentin 875-125 Tablet PO SCH ×2 (09:21→17:50)
[2019-06-04] MEDS: FERREX 150 PO SCH (09:21)
[2019-06-04 18:12] VITALS: BP 138/84; PULSE 63
== END 2019-06-04 17:57 | disposition home or self-care (01) | DRG 805 ==
LOC: OB 19:45 → OBSVTOIN 06-02 09:25
PROVIDERS: ADMIT Family Medicine; ATTEND Family Medicine
PROC: 10E0XZZ Delivery of Products of Conception, External Approach (ICD-10-PCS; principal; 2019-06-02)
DX: O70.0 First degree perineal laceration during delivery (principal); O75.3 Other infection during labor; Z37.0 Single live birth; O99.02 Anemia complicating childbirth; Z3A.39 39 weeks gestation of pregnancy
CPT/HCPCS: 36415; 80307; 81001; 81003; 85025; 85461; 86850; 86900; 86901; 87086; 87340; 90715; 94799; 96372; G0378; J0696; J2405; J2590; J2790; J2795; A9270-GY

== ENCOUNTER 2020-07-20 11:20 | Emergency (ER) | payer OTHER ==
[2020-07-20 11:34] VITALS: O2SAT 99
[2020-07-20] MEDS ORDERED: TYLENOL EXTRA STRENGTH 500 MG PO STA (11:38)
[2020-07-20] MEDS ORDERED: MOTRIN 600 MG PO ONE (11:38)
[2020-07-20] MEDS ORDERED: TYLENOL EXTRA STRENGTH 500 MG ONE (11:41)
[2020-07-20] MEDS ORDERED: MOTRIN 600 MG ONE (11:41)
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
[2020-07-20 12:48] VITALS: BP 138/89; PULSE 97
--- NOTE | 2020-07-20 15:54 | XRAY ---
Indication: 5th metacarpal pain following crush injury. Comparison: None 3 view right hand demonstrates old 5th metacarpal fracture and mild posterior soft tissue swelling. No other bony, articular, or soft tissue abnormalities. Comment: Preliminary interpretation was made by [facility]. No critical discrepancy.
== END 2020-07-20 12:47 | disposition home or self-care (01) ==
LOC: ED 11:20
DX: S63.91XA Sprain of unspecified part of right wrist and hand, initial encounter (principal); M79.641 Pain in right hand; X50.9XXA Other and unspecified overexertion or strenuous movements or postures, initial encounter
CPT/HCPCS: 73130; 99283; L3908; A9270-GY

== ENCOUNTER 2023-09-23 21:01 | Emergency (ER) | payer OTHER | END 2023-09-23 21:35 | disposition left against medical advice (07) | LOC: ED 21:01 | DX: Z53.21 Procedure and treatment not carried out due to patient leaving prior to being seen by health care provider (principal) ==